=== PATIENT | female | born 1980 | race Two or more races ===

== ENCOUNTER 2018-05-07 23:57 | Outpatient (CLI) | payer OTHER ==
[2018-05-08] MEDS ORDERED: SYNTHROID50 MCG PO (00:04)
[2018-05-08] MEDS ORDERED: PRENATAL TABLE1 EAC4 PO (00:06)
== END 2018-05-08 14:09 | disposition home or self-care (01) ==
LOC: OBS/DEL 23:57
DX: O47.1 False labor at or after 37 completed weeks of gestation (principal); Z34.03 Encounter for supervision of normal first pregnancy, third trimester

== ENCOUNTER 2018-05-28 15:10 | Inpatient (IN) | payer OTHER ==
[~2018-05-28] VITALS: Ht 160 cm; Wt 68.0 kg
[~2018-05-28 15:10] MED LIST: PRENATAL TABLE1 EAC4 PO; SYNTHROID50 MCG PO
[2018-06-01] MEDS ORDERED: ACETAMINOPHEN500 M1 PO (16:56)
[2018-06-01] MEDS ORDERED: IBUPROFEN800 MG PO (16:56)
[2018-06-01] MEDS ORDERED: PRENATAL TABLE1 EAC4 PO (16:57)
[2018-06-01] MEDS ORDERED: DOCUSATE SODIU100 MG PO (16:57)
[2018-06-01] MEDS ORDERED: LEVOTHYROXINE25 MCG PO (16:57)
[2018-06-01] MEDS ORDERED: MAXFE CAPLET1 EACH PO (16:58)
== END 2018-06-01 17:58 | DRG 786 ==
LOC: SURG-SUITE 15:10 → LDR 15:10 → SURG-SUITE 05-29 11:49
PROVIDERS: ADMIT Obstetrics & Gynecology
PROC: 4A1HXCZ Monitoring of Products of Conception, Cardiac Rate, External Approach (ICD-10-PCS; 2018-05-28)
PROC: 10D00Z1 Extraction of Products of Conception, Low, Open Approach (ICD-10-PCS; principal; 2018-05-29 10:00)
DX: O32.1XX0 Maternal care for breech presentation, not applicable or unspecified (principal); O60.14X0 Preterm labor third trimester with preterm delivery third trimester, not applicable or unspecified; O14.03 Mild to moderate pre-eclampsia, third trimester; O41.03X0 Oligohydramnios, third trimester, not applicable or unspecified; Z3A.36 36 weeks gestation of pregnancy; Z37.0 Single live birth